=== PATIENT | female | born 2000 | race Caucasian/White ===

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

== ENCOUNTER 2019-03-22 15:19 | Inpatient (IN) | payer MEDICAID ==
[2019-03-22] MEDS ORDERED: Sodium Chloride 0.9% 10 ML Syringe FLUSH PRN (15:57)
[2019-03-22] MEDS ORDERED: Lactated Ringers 1,000 ML IV ONE ×2 (15:57→18:00)
[2019-03-22] MEDS ORDERED: Scopolamine 1.5 MG Transdermal Patch TOP ONE (15:58)
[2019-03-22] MEDS ORDERED: Citric Acid/Sodium Citrate Solution 30 ML Cup PO ONE (15:58)
[2019-03-22] MEDS ORDERED: diphenhydrAMINE 50 MG/ML SDV IVPUSH PRN (17:51)
[2019-03-22] MEDS ORDERED: ePHEDrine 50 MG/ML SDV IVPUSH PRN (17:51)
[2019-03-22] MEDS ORDERED: Naloxone 0.4 MG/ML SDV IVPUSH PRN (17:51)
[2019-03-22] MEDS ORDERED: Bupivacaine 0.25% 30 ML SDV ONE (18:00)
[2019-03-22] MEDS ORDERED: ceFAZolin 1 GM Vial IV ONE (18:00)
[2019-03-22] MEDS ORDERED: Ketorolac 30 MG/ML SDV IVPUSH ONE (18:00)
[2019-03-22] MEDS ORDERED: Morphine PF 10 MG/10 ML SDV ONE (18:00)
[2019-03-22] MEDS ORDERED: fentaNYL 100 MCG/2 ML SDV IV ONE (18:00)
[2019-03-22] MEDS ORDERED: HYDROmorphone 2 MG/ML SDV IV ONE (18:00)
[2019-03-22] MEDS ORDERED: Midazolam 1 MG/ML 2 ML SDV IV ONE (18:00)
[2019-03-22] MEDS ORDERED: ePHEDrine 50 MG/ML SDV IV ONE (18:00)
[2019-03-22] MEDS ORDERED: Oxytocin 10 Units/1 ML SDV IV ONE (18:00)
[2019-03-22] MEDS ORDERED: Ondansetron 4 MG/2 ML SDV IVPUSH ONE (18:00)
[2019-03-22] MEDS: Lactated Ringers 1,000 ML IV SCH ×2 (19:25→23:56)
[2019-03-23] MEDS: Lactated Ringers 1,000 ML IV SCH ×2 (03:48→09:03)
--- NOTE | 2019-03-23 09:06 | PCM.PNPP ---
- General Info Date of Service: 03/23/19 Subjective Update: No major complaints.Pain is been controlled by Dilaudid Functional Status: Reports: Pain Controlled - Review of Systems General: Reports: No Symptoms HEENT: Reports: No Symptoms Pulmonary: Reports: No Symptoms Cardiovascular: Reports: No Symptoms - General Info Date of Service: 03/23/19 - Patient Data Vital Signs - Most Recent: Last Vital Signs Temp 97.9 F 03/23/19 01:00 Pulse 104 H 03/23/19 04:00 Resp 18 03/23/19 04:00 BP 109/74 03/23/19 04:00 Pulse Ox 99 03/23/19 04:00 Weight - Most Recent: 62.596 kg I&O - Last 24 Hours: Intake & Output 03/22/19 03/23/19 03/23/19 22:59 06:59 14:59 Intake Total 2000 Output Total 200 450 Balance -200 1550 Lab Results - Last 24 Hours: Laboratory Results - last 24 hr 03/23/19 Range/Units 06:20 WBC 14.4 H (4.5-12.0) X10-3/uL RBC 3.24 (3.23-5.20) x10(6)uL Hgb 8.6 L D (11.5-15.5) g/dL Hct 26.1 L D (30.0-51.3) % MCV 80.7 (80-96) fL MCH 26.6 L (27.7-33.6) pg MCHC 32.9 (32.2-35.4) g/dL RDW 13.7 (11.5-15.5) % Plt Count 181 (125-369) X10(3)uL MPV 9.7 (7.4-10.4) fL Add Manual Diff Yes Neutrophils % (Manual) 80 (46-82) % Band Neutrophils % 2 (0-6) % Lymphocytes % (Manual) 15 (13-37) % Monocytes % (Manual) 3 L (4-12) % Med Orders - Current: Current Medications Diphenhydramine HCl (Benadryl) 25 mg IVPUSH Q6H PRN PRN Reason: Itching or Nausea Ephedrine Sulfate (Ephedrine Sulfate) 5 mg IVPUSH ASDIRECTED PRN PRN Reason: Other Lactated Ringer's (Ringers, Lactated) 1,000 mls @ 250 mls/hr IV ASDIRECTED ADRI Last Admin: 03/23/19 03:48 Dose: 250 mls/hr Naloxone HCl (Narcan) 0.1 mg IVPUSH ONETIME PRN PRN Reason: Respiratory Depression Sodium Chloride (Saline Flush) 10 ml FLUSH ASDIRECTED PRN PRN Reason: Keep Vein Open Discontinued Medications Citric Acid/Sodium Citrate (Bicitra Solution) 30 ml PO ONETIME ONE Stop: 03/22/19 15:59 Last Admin: 03/22/19 19:27 Dose: 30 ml Lactated Ringer's (Ringers, Lactated) 1,000 mls @ 999 mls/hr IV BOLUS ONE Stop: 03/22/19 16:57 Last Admin: 03/22/19 16:00 Dose: 999 mls/hr Scopolamine (Transderm-Scop) 1.5 mg TOP ONETIME ONE Stop: 03/22/19 15:59 Last Admin: 03/22/19 19:27 Dose: 1.5 mg - Interaction Disposition, : [place] in Room with Family Interaction: Holding Support Person: Significant Other - Recovery Exam Fundal Tone: Firm Fundal Level: At Umbilicus Fundal Placement: Midline Lochia Amount: Moderate Lochia Color: Rubra/Red Urinary Elimination: Indwelling Catheter - Exam General: Alert, Oriented HEENT: Pupils Equal Neck: Supple Lungs: Clear to Auscultation Cardiovascular: Regular Rate GI/Abdominal Exam: Normal Bowel Sounds - Problem List & Annotations (1) delivery delivered SNOMED Code(s): 603362517 Code(s): O82 - ENCOUNTER FOR DELIVERY WITHOUT INDICATION Status: Acute Current Visit: Yes (2) care and examination SNOMED Code(s): 952148936, 730543794 Code(s): Z39.2 - ENCOUNTER FOR ROUTINE FOLLOW-UP Status: Acute Current Visit: Yes - Problem List Review Problem List Initiated/Reviewed/Updated: Yes - My Orders Last 24 Hours: My Active Orders 03/22/19 15:57 Sodium Chloride 0.9% [Saline Flush] 10 ml FLUSH ASDIRECTED PRN Peripheral IV Insertion Adult [OM.PC] Routine 03/22/19 17:51 Intake and Output [RC] 06,14,22 RT Incentive Spirometry [RC] Q4HWA Vital Signs [RC] PER UNIT ROUTINE Naloxone [Narcan] 0.1 mg IVPUSH ONETIME PRN diphenhydrAMINE [Benadryl] 25 mg IVPUSH Q6H PRN ePHEDrine [ePHEDrine sulfate] 5 mg IVPUSH ASDIRECTED PRN Assess Lochia [WOMSER] Per Unit Routine 03/22/19 18:00 Lactated Ringers [Ringers, Lactated] 1,000 ml IV ASDIRECTED - Plan Plan:: Will advacne diet. Contol pain with oral narcotics. Later today remove [place], ambulate.
[2019-03-23] MEDS: Ibuprofen 600 MG Tab PO SCH ×3 (09:27→21:31)
--- NOTE | 2019-03-23 10:00 | OR ---
DATE OF OPERATION: 03/22/2019 SURGEON: Rob Jones MD OPERATION: Primary delivery, lower uterine segment, transverse. INDICATION: Breech presentation. POSTOPERATIVE DIAGNOSIS: Breech presentation. ANESTHESIA: Spinal. MOLDING TECHNICIAN: Curtis Crockett MD. OPERATIVE DETAILS: The patient accepted the risks and benefits of this procedure. She had come in, in labor and also found to have nonreassuring heart tones. She was due for an elective delivery next week for breech presentation. She was taken to the OR. Spinal anesthesia was placed and it was found to be adequate. She was draped and prepped in the usual sterile fashion lying in dorsal position with a leftward tilt. A Pfannenstiel incision was made along the lower abdomen and carried to the fascia. The fascia was scored in the middle and carried to the sides by Butler scissors. The inferior and superior portions of the fascia were tented and the muscles dissected bluntly. The muscles were in the middle and the peritoneum entered sharply, making sure not to injure the underlying organs. After a bladder blade was inserted, a bladder reflection of the peritoneum was fashioned. An incision was made along the lower uterine segment, a transverse incision, and extended with the fingers pulling in a caudal-cephalad fashion. The baby's buttocks were encountered, pulled by the pelvis, and delivered without any trauma or difficulty. There was a cord that was wrapped around the neck x3. After this was reduced, it was cut and clamped. The baby was handed to the nurses, vigorous. Cord blood was obtained and the uterus was exteriorized and placenta removed. Pitocin was initiated at that time and the uterus was closed in 2 layers. Several stitches of [id number] were needed to control hemostasis. This was obtained even after the uterus was placed in the abdomen. After irrigation, the rectus fascia was closed with a 0 Vicryl in 1 layer locking stitch. Thereafter, the Jesus fascia and the skin were closed with a 3-0 running stitch Vicryl. The counts for laps, instruments, and sponges were correct x3. Estimated blood loss about 400 to 500 mL, and the patient received 2 g of Ancef prior to the incision. /[id number] 52 TN/MODL
[2019-03-23] MEDS: oxyCODONE 5 MG Tab PO PRN ×2 (13:01→17:35)
[2019-03-23] MEDS ORDERED: oxyCODONE 5 MG Tab PO PRN (23:05)
[2019-03-23] MEDS ORDERED: diphenhydrAMINE 50 MG/ML SDV IVPUSH PRN (23:07)
[2019-03-23] MEDS ORDERED: ePHEDrine 50 MG/ML SDV IVPUSH PRN (23:11)
[2019-03-23] MEDS ORDERED: Naloxone 0.4 MG/ML SDV IVPUSH PRN (23:17)
[2019-03-24] MEDS: Ibuprofen 600 MG Tab PO SCH ×2 (05:58→09:52)
--- NOTE | 2019-03-24 06:35 | PCM.PNPP ---
- General Info Date of Service: 03/24/19 Subjective Update: Pain is described as cramps.Lochia has improved.No SOB or chest pain. has had mild sinus tachycardia for a while,with no proper explanation. Functional Status: Reports: Pain Controlled - Review of Systems HEENT: Reports: No Symptoms Pulmonary: Reports: No Symptoms Cardiovascular: Reports: No Symptoms Gastrointestinal: Reports: No Symptoms - General Info Date of Service: 03/24/19 - Patient Data Vital Signs - Most Recent: Last Vital Signs Temp 98.4 F 03/24/19 00:00 Pulse 106 H 03/24/19 00:00 Resp 18 03/24/19 00:00 BP 102/69 03/24/19 00:00 Pulse Ox 98 03/24/19 00:00 Weight - Most Recent: 62.596 kg I&O - Last 24 Hours: Intake & Output 03/23/19 03/23/19 03/24/19 14:59 22:59 06:59 Intake Total 3000 950 Output Total 2000 650 Balance -1999 2350 950 Lab Results - Last 24 Hours: Laboratory Results - last 24 hr 03/23/19 Range/Units 06:20 WBC 14.4 H (4.5-12.0) X10-3/uL RBC 3.24 (3.23-5.20) x10(6)uL Hgb 8.6 L D (11.5-15.5) g/dL Hct 26.1 L D (30.0-51.3) % MCV 80.7 (80-96) fL MCH 26.6 L (27.7-33.6) pg MCHC 32.9 (32.2-35.4) g/dL RDW 13.7 (11.5-15.5) % Plt Count 181 (125-369) X10(3)uL MPV 9.7 (7.4-10.4) fL Add Manual Diff Yes Neutrophils % (Manual) 80 (46-82) % Band Neutrophils % 2 (0-6) % Lymphocytes % (Manual) 15 (13-37) % Monocytes % (Manual) 3 L (4-12) % Med Orders - Current: Current Medications Diphenhydramine HCl (Benadryl) 25 mg IVPUSH Q6H PRN PRN Reason: ITCHING OR NAUSEA Ephedrine Sulfate (Ephedrine Sulfate) 5 mg IVPUSH ASDIRECTED PRN PRN Reason: Other Ibuprofen (Motrin) 600 mg PO Q6H [facility] Last Admin: 03/24/19 05:58 Dose: 600 mg Naloxone HCl (Narcan) 0.1 mg IVPUSH ONETIME PRN PRN Reason: RESPIRATORY DEPRESSION Oxycodone HCl (Oxycodone) 5 mg PO Q4H PRN PRN Reason: BREAKTHROUGH PAIN Last Admin: 03/24/19 00:22 Dose: 5 mg Sodium Chloride (Saline Flush) 10 ml FLUSH ASDIRECTED PRN PRN Reason: Keep Vein Open Discontinued Medications Citric Acid/Sodium Citrate (Bicitra Solution) 30 ml PO ONETIME ONE Stop: 03/22/19 15:59 Last Admin: 03/22/19 19:27 Dose: 30 ml Diphenhydramine HCl (Benadryl) 25 mg IVPUSH Q6H PRN PRN Reason: Itching or Nausea Ephedrine Sulfate (Ephedrine Sulfate) 5 mg IVPUSH ASDIRECTED PRN PRN Reason: Other Lactated Ringer's (Ringers, Lactated) 1,000 mls @ 999 mls/hr IV BOLUS ONE Stop: 03/22/19 16:57 Last Admin: 03/22/19 16:00 Dose: 999 mls/hr Lactated Ringer's (Ringers, Lactated) 1,000 mls @ 250 mls/hr IV ASDIRECTED ADRI Last Admin: 03/23/19 09:03 Dose: 250 mls/hr Ibuprofen (Motrin) 600 mg PO Q6H [facility] Last Admin: 03/23/19 21:31 Dose: 600 mg Naloxone HCl (Narcan) 0.1 mg IVPUSH ONETIME PRN PRN Reason: Respiratory Depression Oxycodone HCl (Oxycodone) 5 mg PO Q4H PRN PRN Reason: Breakthrough Pain Last Admin: 03/23/19 17:35 Dose: 5 mg Scopolamine (Transderm-Scop) 1.5 mg TOP ONETIME ONE Stop: 03/22/19 15:59 Last Admin: 03/22/19 19:27 Dose: 1.5 mg - Interaction Disposition, : in Room with Family Infant Interaction: Holding Infant Support Person: Significant Other - Recovery Exam Fundal Tone: Firm Fundal Level: 1 Fingerbreadths Below Umbilicus Fundal Placement: Midline Lochia Amount: Small, Moderate Lochia Color: Rubra/Red Urinary Elimination: Voided - Exam General: Alert, Oriented Skin: Warm Wound/Incisions: Healing Well Neurological: No New Focal Deficit, Cranial Nerves Intact Psy/Mental Status: Alert, Normal Affect - Problem List & Annotations (1) delivery delivered SNOMED Code(s): 999831367 Code(s): O82 - ENCOUNTER FOR DELIVERY WITHOUT INDICATION Status: Acute Current Visit: Yes (2) care and examination SNOMED Code(s): 643808202, 741455865 Code(s): Z39.2 - ENCOUNTER FOR ROUTINE FOLLOW-UP Status: Acute Current Visit: Yes (3) Sinus tachycardia SNOMED Code(s): 95987237 Code(s): R00.0 - TACHYCARDIA, UNSPECIFIED Status: Acute Current Visit: Yes - Problem List Review Problem List Initiated/Reviewed/Updated: Yes - My Orders Last 24 Hours: My Active Orders 03/23/19 13:30 Convert IV to Saline Lock [OM.PC] Routine 03/23/19 23:05 oxyCODONE 5 mg PO Q4H PRN 03/23/19 23:07 diphenhydrAMINE [Benadryl] 25 mg IVPUSH Q6H PRN 03/23/19 23:11 ePHEDrine [ePHEDrine sulfate] 5 mg IVPUSH ASDIRECTED PRN 03/23/19 23:17 Naloxone [Narcan] 0.1 mg IVPUSH ONETIME PRN 03/24/19 03:30 Ibuprofen [Motrin] 600 mg PO Q6H 03/24/19 06:31 EKG Documentation Completion [RC] ASDIRECTED CBC WITH AUTO DIFF [HEME] Stat EKG 12 Lead [EK] Routine - Plan Plan:: I obtained a CBC repeat and an EKG.Patient would like to go home. I will discharge her ,with a 2 weeks incision check.Oral narcotics.
--- NOTE | 2019-03-24 11:12 | DISCH ---
DISCHARGE DATE: 03/24/2019 REASON FOR ADMISSION: 1. Active labor at term. 2. Breech presentation. DISCHARGE DIAGNOSIS: delivery, lower uterine segment, transverse. BRIEF HISTORY: This is a 18-year-old female, primigravida, came in at term in labor. She was scheduled for for breech delivery next week. Dr. Crockett and I performed the surgery on the with the product being a live male infant. Postoperatively, she did quite well. She had a hemoglobin of 8.6. She did have some tachycardia that she had at presentation and also most of the hospital stay. Heart rate being in the low one teens. However, she did not have any chest pain or shortness of breath, and her oxygenation remained 98% or better on room air. I discharged her home on oxycodone 5 mg every 6 hours p.r.n. and vitamins and Motrin. I recommended follow up with me in 2 weeks for incision check. I spent more than 35 minutes in discharge of the patient. /[id number] ELIU/TIKI
== END 2019-03-24 13:45 | disposition home or self-care (01) | DRG 788 ==
LOC: FB.OBCHECK 15:19 → FB.OB 15:20
PROVIDERS: ADMIT Family Medicine; ATTEND Family Medicine
PROC: 10D00Z1 Extraction of Products of Conception, Low, Open Approach (ICD-10-PCS; principal; 2019-03-22)
DX: O32.1XX0 Maternal care for breech presentation, not applicable or unspecified (principal); O69.81X0 Labor and delivery complicated by cord around neck, without compression, not applicable or unspecified; Z3A.39 39 weeks gestation of pregnancy; Z37.0 Single live birth
CPT/HCPCS: 36415; 85025; 88307; 93005; 94150; 99211; A9270-GY; J0690; J1170; J1885; J2250; J2270; J2405; J2590; J3010; J3490; J7120

== ENCOUNTER 2019-09-14 13:38 | Emergency (ER) | payer MEDICAID ==
[2019-09-14] MEDS ORDERED: Doxycycline 100 MG Tab PO ONE (13:39)
--- NOTE | 2019-09-14 13:57 | EDM.PDOC ---
ED HPI GENERAL MEDICAL PROBLEM - General Stated Complaint: LUMP Time Seen by Provider: 09/14/19 13:53 Source of Information: Reports: Patient History Limitations: Reports: No Limitations - History of Present Illness INITIAL COMMENTS - FREE TEXT/NARRATIVE: Tari complains of a lump on the left inner thigh for 2 weeks.Gotten bigger, more painful. No fever. - Related Data Allergies Allergy/AdvReac Type Severity Reaction Status Date / Time No Known Allergies Allergy Verified 03/22/19 17:47 Home Meds: Home Meds Vit No.129/Iron/FA [ One Daily Tablet] 1 tab PO DAILY 08/02/18 [History] Ibuprofen [Motrin] 600 mg PO Q6H #30 tablet 03/24/19 [Rx] oxyCODONE 5 mg PO Q4H PRN #20 tablet 03/24/19 [Rx] Past Medical History - Past Health History Medical/Surgical History: Denies Medical/Surgical History HEENT History: Reports: Impaired Vision [employer] History: Reports: Other [employer] History: - Past Surgical History Female Surgical History: Reports: Section Social & Family History - Family History Family Medical History: Noncontributory - Caffeine Use Caffeine Use: Reports: Coffee, Soda Other Caffeine Use: 1-2 cans daily ED ROS GENERAL - Review of Systems Review Of Systems: Comprehensive ROS is negative, except as noted in HPI. ED EXAM, SKIN/RASH Exam: See Below Text/Narrative:: Chaperoned exam revealed a tender area in the medial left thigh,a tiny cyst felt subcutaneously. Departure - Departure Time of Disposition: 13:55 Disposition: Home, Self-Care 01 Condition: Good Clinical Impression: Sebaceous cyst - Discharge Information Referrals: Curtis Crockett MD [Primary Care Provider] - - Problem List & Annotations (1) Sebaceous cyst SNOMED Code(s): 036460626 Code(s): L72.3 - SEBACEOUS CYST Status: Acute - Problem List Review Problem List Initiated/Reviewed/Updated: Yes - Assessment/Plan Plan: I suspect an infected sebaceous cysts,vs a folliculitis. I will treat with Doxy ,warm compress and follow up in the office.
== END 2019-09-14 14:05 | disposition home or self-care (01) ==
LOC: FB.ED 13:38
DX: L72.3 Sebaceous cyst (principal)
CPT/HCPCS: 99282; A9270

== ENCOUNTER 2020-01-10 00:24 | Emergency (ER) | payer MEDICAID ==
[2020-01-10] MEDS ORDERED: Ketorolac 60 MG/2 ML SDV IM ONE (00:53)
[2020-01-10] MEDS ORDERED: hydrOXYzine HCl 50 MG/ML SDV IM ONE (00:53)
--- NOTE | 2020-01-10 00:56 | EDM.PDOC ---
ED HPI GENERAL MEDICAL PROBLEM - General Chief Complaint: Headache Stated Complaint: MIGRAINE Time Seen by Provider: 01/10/20 00:54 Source of Information: Reports: Patient History Limitations: Reports: No Limitations - History of Present Illness INITIAL COMMENTS - FREE TEXT/NARRATIVE: 19 yo with a migraine headache. She complains of a moderate headache that is frontal,associated with vomiting. Took Motrin with no help. She reports that she has been having similar headaches over the last few months. 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 - Physical Exam Exam: See Below Exam Limited By: No Limitations General Appearance: Alert Ears: Normal External Exam Nose: Normal Inspection Throat/Mouth: Normal Inspection Head Exam: Atraumatic Neck: Normal Inspection Respiratory/Chest: No Respiratory Distress Cardiovascular: Normal Peripheral Pulses Course - Vital Signs Last Recorded V/S: Last Vital Signs Temp 98.1 F 01/10/20 00:40 Pulse 92 01/10/20 00:40 Resp 16 01/10/20 00:40 BP 113/74 01/10/20 00:40 Pulse Ox 100 01/10/20 00:40 - Orders/Labs/Meds Meds: Medications Discontinued Medications Generic Name Dose Route Start Last Admin Trade Name Freq PRN Reason Stop Dose Admin Hydroxyzine HCl 50 mg 01/10/20 00:53 01/10/20 01:00 Vistaril IM 01/10/20 00:54 50 mg ONETIME ONE Administration Ketorolac Tromethamine 60 mg 01/10/20 00:53 01/10/20 00:59 Toradol IM 01/10/20 00:54 60 mg ONETIME ONE Administration Departure - Departure Time of Disposition: :08 Disposition: Home, Self-Care 01 Condition: Good Clinical Impression: Migraine - Discharge Information Prescriptions: SUMAtriptan succinate [Imitrex] 50 mg PO DAILY PRN #10 tablet PRN Reason: Headache Instructions: Recurrent Migraine Headache Referrals: Curtis Crockett MD [Primary Care Provider] - 01/14/20 Forms: ED Department Discharge Sepsis Event Note (ED) - Evaluation Sepsis Screening Result: No Definite Risk - Focused Exam Vital Signs: Vital Signs Temp Pulse Resp BP Pulse Ox 01/10/20 00:40 98.1 F 92 16 113/74 100 - Problem List & Annotations (1) Headache SNOMED Code(s): 06664784 Code(s): R51 - HEADACHE Status: Acute Current Visit: Yes Qualifiers: Headache type: tension-type Headache chronicity pattern: acute headache - Problem List Review Problem List Initiated/Reviewed/Updated: Yes - Assessment/Plan Plan: Ketorlac and Vistatril. Send home with Imitrex prescription
== END 2020-01-10 01:35 | disposition home or self-care (01) ==
LOC: FB.ED 00:24
DX: G43.909 Migraine, unspecified, not intractable, without status migrainosus (principal)
CPT/HCPCS: 96372; 99283; J1885; J3410

== ENCOUNTER 2020-10-03 18:32 | Emergency (ER) | payer MEDICAID ==
[2020-10-03] MEDS ORDERED: Acetaminophen/HYDROcodone 325-5 MG Tab PO ONE (18:33)
--- NOTE | 2020-10-03 18:59 | EDM.PDOC ---
ED HPI GENERAL MEDICAL PROBLEM - General Chief Complaint: Abdominal Pain Stated Complaint: ABDOMINAL PAIN Time Seen by Provider: 10/03/20 18:55 Source of Information: Reports: Patient History Limitations: Reports: No Limitations - History of Present Illness INITIAL COMMENTS - FREE TEXT/NARRATIVE: Presents with low abdominal pain x 5 days associated with N/V. She was treated at Walk-in clinic today, CT Abd/Pelvis was done, diagnosed with ovarian cysts and hypokalemia. A pelvic exam was not performed. Pelvic US was ordered. She was prescribed Zofran and Tramadol. Pain is not controlled. Patient does endorse vaginal discharge but is currently menstruating. She had unprotected intercourse with someone who she is concerned may have an STD. Denies dysuria, but has had urinary frequency. Onset Date: 09/28/20 Location: Reports: Abdomen low abdomen Pain Score (Numeric/FACES): 7 - Related Data Allergies Allergy/AdvReac Type Severity Reaction Status Date / Time No Known Allergies Allergy Verified 10/03/20 19:29 Home Meds: Home Meds Levothyroxine 25 mcg PO ACBREAKFAST 01/10/20 [History] SUMAtriptan succinate [Imitrex] 50 mg PO DAILY PRN #10 tablet 01/10/20 [Rx] Doxycycline Monohydrate 100 mg PO BID #20 capsule 10/03/20 [Rx] Potassium Chloride 20 meq PO DAILY #20 tablet.er 10/03/20 [Rx] Past Medical History - Past Health History Medical/Surgical History: Denies Medical/Surgical History HEENT History: Reports: Impaired 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 ED EXAM, GI/ABD - Physical Exam Exam: See Below Exam Limited By: No Limitations General Appearance: Alert, WD/WN, No Apparent Distress Respiratory/Chest: No Respiratory Distress GI/Abdominal Exam: Normal Bowel Sounds, Soft, Tender (entire lower abdomen) (Female) Exam: Other (Deferred due to menstruation) Extremities: Normal Inspection Neurological: Alert, Normal Cognition, No Motor/Sensory Deficits Psychiatric: Normal Affect, Normal Mood Skin Exam: Warm, Dry, Intact Course - Vital Signs Last Recorded V/S: Last Vital Signs Temp 36.8 C 10/03/20 19:00 Pulse 76 10/03/20 19:00 Resp 16 10/03/20 19:00 BP 123/78 10/03/20 19:00 Pulse Ox 100 10/03/20 19:00 - Orders/Labs/Meds Orders: Active Orders 24 hr Category Date Time Status CHLAMYDIA/GC AMPLIFICATION Stat Lab 10/03/20 09:50 Received CULTURE URINE [RM] Stat Lab 10/03/20 19:17 Ordered Labs: Laboratory Tests 10/03/20 10/03/20 Range/Units 09:45 09:50 Magnesium 2.2 (1.8-2.5) mg/dL Urine Color Yellow (YELLOW) Urine Appearance Cloudy (CLEAR) Urine pH 5.0 (5.0-6.5) Ur Specific [place] 1.020 (1.010-1.025) Urine Protein 30 H (NEGATIVE) mg/dL Urine Glucose (UA) Normal (NORMAL) mg/dL Urine Ketones 150 H (NEGATIVE) mg/dL Urine Occult Blood Large H (NEGATIVE) Urine Nitrite Negative (NEGATIVE) Urine Bilirubin Small H (NEGATIVE) Urine Urobilinogen 1 H (NEGATIVE) mg/dL Ur Leukocyte Esterase Moderate H (NEGATIVE) Urine RBC 10-20 H (0-5) Urine WBC 5-10 H (0-5) Ur Squamous Epith Cells Few H (NS,R,O) Amorphous Sediment Many Urine Bacteria Few H (NS) Meds: Medications Discontinued Medications Generic Name Dose Route Start Last Admin Trade Name Kenneth PRN Reason Stop Dose Admin Ceftriaxone Sodium 250 mg 10/03/20 19:23 Ceftriaxone 250 Mg Vial IM 10/03/20 19:24 ONETIME ONE Doxycycline Hyclate 100 mg 10/03/20 19:23 Doxycycline 100 Mg Tab PO 10/03/20 19:24 ONETIME ONE Potassium Chloride 40 meq 10/03/20 19:03 10/03/20 19:12 Potassium Chloride 20 Meq Tab.Er PO 10/03/20 19:04 40 meq ONETIME ONE Administration - Re-Assessments/Exams Free Text/Narrative Re-Assessment/Exam: 10/03/20 19:12 Labs reviewed from walk-in clinic. WBC elevated at 15K, K 2.8. CT Abd/Pelvis s/ contrast showed possible bilatral adnexal masses/enlarged ovaries vs. exophytic fibroids. GC/Chlam ordered on the urine sample from clinic and is pending. 10/03/20 19:30 Patient given Stow 5/325 #4 tab starter pack, she is instructed to take this instead of the Tramadol Departure - Departure Time of Disposition: 19:27 Disposition: Home, Self-Care 01 Condition: Good Clinical Impression: Pelvic inflammatory disease, Hypokalemia - Discharge Information *PRESCRIPTION DRUG MONITORING PROGRAM REVIEWED*: Yes *COPY OF PRESCRIPTION DRUG MONITORING REPORT IN PATIENT STEPHANIE: No Prescriptions: Doxycycline Monohydrate 100 mg PO BID #20 capsule Potassium Chloride 20 meq PO DAILY #20 tablet.er Instructions: Pelvic Inflammatory Disease, [id number], Hypokalemia Referrals: Nicky Hall SURGERY CONSULTANT [Nurse Practitioner] - 3 Days Forms: ED Department Discharge Additional Instructions: Fill the prescriptions for Doxycycline and Potassium at [facility] tomorrow and take as directed. Continue Zofran as directed. Take the Stow instead of Tramadol. Keep the appointment for the Pelvic Ultrasound. Follow up with your primary physician in 3 days. If the STD test is positive, you will need your sexual partner treated also. Sepsis Event Note (ED) - Focused Exam Vital Signs: Vital Signs Temp Pulse Resp BP Pulse Ox 10/03/20 19:00 36.8 C 76 16 123/78 100 - My Orders Last 24 Hours: My Active Orders 10/03/20 09:50 CHLAMYDIA/GC AMPLIFICATION Stat 10/03/20 19:17 CULTURE URINE [RM] Stat - Assessment/Plan Last 24 Hours: My Active Orders 10/03/20 09:50 CHLAMYDIA/GC AMPLIFICATION Stat 10/03/20 19:17 CULTURE URINE [RM] Stat
[2020-10-03] MEDS ORDERED: Potassium Chloride 20 MEQ Tab.ER PO ONE (19:03)
[2020-10-03] MEDS ORDERED: Doxycycline 100 MG Tab PO ONE (19:23)
[2020-10-03] MEDS ORDERED: cefTRIAXone 250 MG Vial IM ONE (19:23)
[2020-10-03] MEDS ORDERED: cefTRIAXone 250 MG Vial ONE (19:32)
== END 2020-10-03 19:45 | disposition home or self-care (01) ==
LOC: FB.ED 18:32
DX: N73.9 Female pelvic inflammatory disease, unspecified (principal); E87.6 Hypokalemia; Z79.899 Other long term (current) drug therapy
CPT/HCPCS: 36415; 81001; 83735; 87086; 87491; 87591; 96372; 99284; A9270; J0696